=== PATIENT | male | born 1985 | race Caucasian/White ===

== ENCOUNTER 2025-01-21 08:53 | Emergency (ER) | payer BC, SELFPAY ==
[2025-01-21 08:57] VITALS: BP 174/108
[2025-01-21 09:09] VITALS: BMI 30.2
--- NOTE | 2025-01-21 09:35 | EDRN ---
Teodoro Wetzel PA in room w/pt.
[2025-01-21 10:04] VITALS: BP 138/98
--- NOTE | 2025-01-21 10:20 | ED.GENMED ---
History of Present Illness
General
Chief Complaint: Musculo-Skeletal Complaint
Source: patient
Time Seen by Provider: 01/21/25 09:23
History of Present Illness
History of Present Illness:
39-year-old male with past medical history of hyperlipidemia presenting to the ER for evaluation of intermittent right sided leg pain in various different joints noting that he has experienced discomfort in the right lateral ankle, knee, and buttock
area over the last 7 to 10 days, this morning he had pain and difficulty even getting his shoe on which is ultimately what prompted him to come to the ER. Pain is mostly mild, improves with Tylenol and ice/compression, at times notes that he does
not have any pain at all but then will wake up and have the pain when he first starts to get up and move around but the pain will gradually start to subside. Patient denies any history of similar, no traumatic injuries, no fevers or recent
illnesses, no prolonged sedentary states or recent surgeries. Family history and social history noncontributory.
Past History
Past History
ED Past Medical History: Hypercholesterolemia
ED Past Surgical History: None
Social History
Tobacco: Non-smoker
Alcohol: None
Drug: None
Personal:
Living: with family
Employment: Employed (etiology teacher)
Review of Systems
Review of Systems
All Other Systems: ROS reviewed and negative except as documented in HPI and ROS
Phy Exam
Physical Exam
Physical Exam:
GENERAL: Alert , in no apparent distress
EYE: conjunctiva clear
NECK: Supple
ENT: o/p clr, mmm.
CARDIAC: Regular rate and rhythm
LUNGS: Clear breath sounds bilaterally, no acute respiratory distress, no wheezes/rales/rhonchi
NEUROLOGICAL: Alert and oriented
SKIN: Warm and dry, skin intact.
MUSCULOSKELETAL: well perfused. Easily palpable pedal and tibial pulse. Cap refill less than 2 seconds. Sensation grossly intact light touch. Patient did have some mild tenderness just proximal to the lateral malleolus but no overlying skin
changes
PSYCH: Normal and appropriate interaction.
Scores
Heart Failure Risk
Heart Failure Risk Score: Not Applicable
Heart Score for Chest Pain Patients
STEMI patient?: Not applicable
Withdrawal Assessment of Alcohol
Withdrawal Assessment Completed?: Not applicable
Course
Orders/Labs/Results
Orders:
Orders
01/21/25 09:47
US Periph Venous LOWER Ext RT Urgent
Comment:
Reason For Exam: pain
01/21/25 09:57
CRP [C-Reactive Protein] Urgent
Complete Blood Count/With Diff Urgent
Comprehensive Metabolic Panel Urgent
ESR [Erythrocyte Sed Rate] Urgent
Lyme Progressive Urgent
Abnormal Lab Results
01/21/25
09:57
Chloride 108 H mmol/L
(98-107)
Glucose 103 H mg/dl
(70-99)
01/21/25 09:57
01/21/25 09:57
Vital Signs
Initial and Last Documented VS:
Initial Vital Signs
Temp Pulse Resp BP Pulse Ox
98.2 F 90 20 174/108 98
01/21/25 08:57 01/21/25 08:57 01/21/25 08:57 01/21/25 08:57 01/21/25 08:57
Last Documented Vital Signs
Temp Pulse Resp BP Pulse Ox
98.2 F 80 16 143/100 98
01/21/25 08:57 01/21/25 11:52 01/21/25 11:52 01/21/25 11:52 01/21/25 11:52
MDM/Problems Addressed
Differential Diagnosis Includes:
arhtritis, rheumatologic disorder (RA), lyme, DVT
MDM/Problems Addressed:
39-year-old male presenting the ER for atraumatic right lower extremity pain in various different joints over the last 7 to 10 days. No trauma, no fevers or infectious symptoms. Patient does have some mild tenderness along the lateral malleolus
today. There is no significant edema. Overall doubt any acute emergent pathologies but will check labs and ultrasound imaging. I discussed with patient that I anticipated he would likely need outpatient follow-up with primary care provider for
further labs and testing depending on workup here. Will trial steroid taper. Anticipate discharge home.
*Radiology
Radiology exam reviewed: radiology read reviewed
*Pulse Oximetry
Patient hypoxic: no
*Critical Care Note
Total Time (30-74mins, 75-104mins- exclusive of procedures): Not Applicable
Patient Management
Escalation/DeEscalation of care consider admission/obs:
Patient's labs are all reassuring, normal inflammatory markers. Ultrasound is negative for DVT. I do not suspect any emergent pathologies however at this time I do not have a current diagnosis and I did express to the patient that I do feel he
would likely need further workup as an outpatient if symptoms persist. Will trial a steroid taper for some pain relief. Patient is in agreement with this plan. Will follow-up with primary care provider. Aware of return precautions.
ED Attending Note
-
Portions of this chart may have been created with voice recognition software.� Occasional wrong word or��sound alike� substitutions may have occurred due to the inherent limitations of voice recognition software.
Discharge Plan
Departure
Patient Disposition: Home (Routine Discharge)
Date of Disposition: 01/21/25
Time of Disposition: 12:27
Patient with high blood pressure during this ER visit?: Yes
Discharge Problem:
Pain in right lower leg
Instructions: Muscle, joint, and bone pain - Discharge instructions
Prescriptions:
New
prednisone 10 mg Tablet
See Rx Instructions .ROUTE .COMPLEX Qty: 30 0RF
Rx Instructions:
Take By Mouth:
40 mg daily x3 days, 30 mg daily x3 days,
20 mg daily x3 days, 10 mg daily x3 days.
Referrals:
Moe Ibarra MD [Family Provider] -
Interventions
Interventions:
*Risk Screen - Suicide Last Done: 01/21/25 08:57
*General Assessment Last Done: 01/21/25 09:09
*Neglect/Abuse Screening Last Done: 01/21/25 09:09
*ED- Fall Risk Assessment Last Done: 01/21/25 09:09
*ED COVID-19 Vaccine History Last Done: 01/21/25 09:09
*Nursing Disposition Last Done: 01/21/25 11:35
ED-Musculoskeletal Assessment Last Done: 01/21/25 09:15
Discharge Date and Time
Discharge Date/Time: 01/21/25 11:35
Print Language: DIVEHI
[2025-01-21 10:22] LABS: ALT (SGPT) 32 U/L (0-50); AST (SGOT) 24 U/L (17-59); Albumin 4.4 g/dl (3.5-5.0); Alkaline Phosphatase 71 U/L (38-126); Blood Urea Nitrogen 14 mg/dl (9-20); Calcium 9.5 mg/dl (8.4-10.2); Carbon Dioxide 27 mmol/L (22-30); Chloride 108 mmol/L (98-107); Estimated Creatinine Clearance > 125 ml/min; Glucose 103 mg/dl (70-99); Potassium 4.4 mmol/L (3.5-5.1); Sodium 143 mmol/L (135-145); Total Bilirubin 0.6 mg/dl (0.2-1.3); Total Protein 6.8 g/dl (6.3-8.2); eGFR > 60.00
[2025-01-21 10:24] LABS: C-Reactive Protein < 5.00 mg/L (0.0-10.00)
[2025-01-21 10:29] LABS: Erythrocyte Sed Rate 9 mm/hour (0-20)
[2025-01-21 10:39] LABS: Hematocrit 41.6 % (39.0-52.0); Hemoglobin 14.5 g/dL (13.0-18.0); Mean Corp Hgb Conc. 34.9 g/dL (33.0-37.0); Mean Corpuscular Hgb 30.1 pg (27.0-31.0); Mean Corpuscular Volume 86.5 fL (80.0-94.0); Mean Platelet Volume 9.3 fL (7.4-10.4); Platelet Count 323 10^3/uL (130-400); Red Blood Cell Count 4.81 10^6/uL (4.70-6.10); Red Cell Dist. Width 12.1 % (11.5-14.5); White Blood Cell Count 6.4 10^3/uL (4.8-10.8)
[2025-01-21 11:09] LABS: % Basophils 0.6 % (0-2); % Eosinophils 2.7 % (0-6); % Immature Granulocytes 0.2 % (0-0.5); % Lymphocytes 28.4 % (20.5-51.1); % Monocytes 7.5 % (1.7-9.3); % Neutrophils 60.6 % (42.2-75.2); Absolute Eosinophils 0.2 10^3/uL (0-0.7); Absolute Lymphocytes 1.8 10^3/uL (1.2-3.4); Absolute Monocytes 0.5 10^3/uL (0.1-0.6); Absolute Neutrophils 3.9 10^3/uL (1.4-6.5); Nucleated Red Blood Cells % 0 % (-)
--- NOTE | 2025-01-21 11:40 | EDRN ---
Teodoro Wetzel PA in to see pt.
[2025-01-21 11:52] VITALS: BP 143/100
[2025-01-23 14:12] LABS: Lyme Antibody Screen, EIA Negative (Negative)
== END 2025-01-21 11:35 | disposition home or self-care (01) ==
LOC: EMR 08:53
PROVIDERS: Physician Assistant Medical; EMERGENCY PHYSICIAN Emergency Medicine; FAMILY PHYSICIAN Internal Medicine
DX: M79.661 Pain in right lower leg (principal); E78.00 Pure hypercholesterolemia, unspecified
CPT/HCPCS: 99284; 80053; 85025; 85652; 86140; 86618; 93971